=== PATIENT | male | born 1990 | race Two or more races ===

== ENCOUNTER → 2024-06-19 | Outpatient (CLI) | payer MEDICAID, SELFPAY ==
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
== END | disposition home or self-care (01) ==
LOC: SMRI 06:50
PROVIDERS: PCP Nurse Practitioner; Referring Provider Nurse Practitioner; Visit Provider Nurse Practitioner
DX: S93.491A Sprain of other ligament of right ankle, initial encounter (principal); S93.421A Sprain of deltoid ligament of right ankle, initial encounter; W19.XXXA Unspecified fall, initial encounter
CPT/HCPCS: 73721

== ENCOUNTER → 2024-08-08 | Outpatient (CLI) | payer MEDICAID, SELFPAY ==
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
--- NOTE | 2024-08-08 15:45 | XR_ITS ---
Examination: Ultrasound soft tissue scalp TECHNIQUE: Sonographic images soft tissue scalp Exam date and time: August 08, 2024 1545 hours INDICATIONS: Palpable lumps on the back of the head note is beginning 6 months ago FINDINGS: No cystic or solid masses depicted IMPRESSION: No cystic or solid masses depicted Consider CT scan brain follow-up with soft tissue settings
== END | disposition home or self-care (01) ==
PROVIDERS: Referring Provider Nurse Practitioner; Visit Provider Nurse Practitioner
DX: R22.0 Localized swelling, mass and lump, head (principal); M48.07 Spinal stenosis, lumbosacral region; S39.92XS Unspecified injury of lower back, sequela; V89.2XXS Person injured in unspecified motor-vehicle accident, traffic, sequela
CPT/HCPCS: 72100; 76536